=== PATIENT | female | born 2000 | race Two or more races ===

== ENCOUNTER 2019-05-26 23:03 | Emergency (ER) | payer OTHER ==
[2019-05-26] MEDS ORDERED: ONDANSETRON HCL INJ/PF 4 MG/2 ML SDV ONE (23:12)
[2019-05-26] MEDS ORDERED: NALOXONE HCL INJ/PF 0.4 MG/1 ML SDV IV ONE ×2 (23:14→23:15)
[2019-05-26] MEDS ORDERED: ONDANSETRON HCL INJ/PF 4 MG/2 ML SDV IV ONE (23:16)
[2019-05-26] MEDS ORDERED: NORMAL SALINE 1000 ML 1,000 ML IV ONE (23:16)
[2019-05-26 23:24] LABS: ABSOLUTE EOSINOPHILS # (AUTO) 0.2 10^3/uL (0.0-0.6); TOTAL CELLS COUNTED % (AUTO) 100 %
[2019-05-26 23:29] LABS: APPEARANCE,URINE CLEAR; BILIRUBIN,URINE NEGATIVE (NEGATIVE); COLOR,URINE COLORLESS; GLUCOSE, URINE NEGATIVE (NEGATIVE); KETONES,URINE NEGATIVE (NEGATIVE); LEUKOCYTE ESTERASE,URINE NEGATIVE (NEGATIVE); NITRITE,URINE NEGATIVE (NEGATIVE); PROTEIN,URINE NEGATIVE (NEGATIVE); URINE SPECIFIC GRAVITY 1.002; UROBILINOGEN,URINE NEGATIVE mg/dL (<2.0)
[2019-05-26 23:30] LABS: ABSOLUTE LYMPHOCYTES (AUTO) 3.9 10^3/uL (0.5-4.7); ABSOLUTE MONOCYTES (AUTO) 0.8 10^3/uL (0.1-1.4); ABSOLUTE NEUT (AUTO) 5.4 10^3/uL (1.7-8.2); BASOPHILS % (AUTO) 0.2 % (0-2); EOSINOPHILS % (AUTO) 1.8 % (0-6); HEMATOCRIT 37.5 % (36.0-47.0); LYMPHOCYTES % (AUTO) 37.6 % (13-45); MEAN CORPUSCULAR HEMOGLOBIN 21.9 pg (27.0-33.4); MEAN CORPUSCULAR VOLUME 68 fl (80-97); MONOCYTES % (AUTO) 7.9 % (3-13); PLATELET COUNT 310 10^3/uL (150-450); RED CELL DISTRIBUTION WIDTH 16.4 % (11.5-14.0); SEGMENTED NEUTROPHILS % (AUTO) 52.5 % (42-78); WHITE BLOOD COUNT 10.4 10^3/uL (4.0-10.5)
--- NOTE | 2019-05-26 23:30 | ER Document Report ---
ED General - General Stated Complaint: UNRESPOSIVE Time Seen by Provider: 05/26/19 23:13 - HPI Notes: 19-year-old female seen for altered mental status. History is obtained from the . Patient is brought here by her who reports that she was unresponsive at the apartment with a friend. They had apparently been drinking some shots of whiskey tonight. He says the patient is unaccustomed to drinking. He is not aware of any history of drug abuse. Patient is previously been in good general health. Uncertain of last menses. Patient has had some type of surgery of her tongue in the past and is otherwise been in good general health. She takes no regular medications. Allergies noted to penicillin and amoxicillin. - Related Data Allergies/Adverse Reactions: amoxicillin Allergy (Verified 05/27/19 00:12) Penicillins Allergy (Verified 05/27/19 00:12) Past Medical History - General Cannot obtain history due to: Altered mental status - Social History Smoking Status: Never Smoker Family History: Reviewed & Not Pertinent Review of Systems - Review of Systems -: Yes ROS unobtainable due to patient's medical condition Physical Exam - Vital signs Vitals: Pulse Resp BP Pulse Ox 117 H 10 L 135/85 H 100 05/26/19 23:03 05/26/19 23:03 05/26/19 23:03 05/26/19 23:03 - Notes Notes: GENERAL: Female patient approximately stated age with shallow respirations and minimal responsiveness to painful stimuli. SKIN: Cool and pale. HEAD: Normocephalic atraumatic. EYES: Pupils small and midposition sluggishly reactive and equal. Gaze is conjugate. Conjunctivae injected and sclerae clear. EARS: CANALS AND TMS CLEAR. NOSE: CLEAR. MOUTH: Moist mucosa. Good dentition. No stridor or edema. No drooling. Depressed gag reflex. NECK: Supple. No masses or thyromegaly. No adenopathy. Carotids 2+ without bruits. No JVD. BACK: Symmetrical without tenderness. CHEST: Shallow respirations. Breath sounds clear and symmetrical. HEART: Regular rhythm. No murmur gallop or rub. ABDOMEN: Soft nontender without masses, organomegaly or rebound. Bowel sounds normally active. No bruits. GENITALIA: Normal female. EXTREMITIES: No edema. No calf tenderness. Cap refill less than 1.5 seconds. Dorsalis pedis and posterior tibial pulses 1+ and symmetrical. NEUROLOGICAL: GCSeyes 2, verbal 2, motor 3 = 7 Course - Re-evaluation Re-evalutation: 05/26/19 23:30 IV line has been established. We bagged the patient briefly and gave Narcan 4 mg total. She showed improvement with this although she is still nonverbal. Blood sugar is 128. Roman catheter has been placed. We will get blood alcohol and urine drug screen, EKG, salicylate and acetaminophen levels, comprehensive metabolic profile and CBC. Anticipate also need for head CT and portable chest x-ray. 05/27/19 00:[address] negative. Chest x-ray negative. Salicylate and acetaminophen levels are nontoxic. Blood alcohol was 118. Urine drug screen is entirely negative. Urine hCG negative. CBC and comprehensive metabolic profile unremarkable. Chest x-ray showed sinus tachycardia with no alteration of intervals or axis. Arterial blood gas was obtained while patient was hyperventilating and values were consistent with this clinically. She subsequently has calmed and is now arousable and answering some questions. Clinically I think the entire presentation is consistent with significant alcohol intoxication and an alcohol anjali individual. Plan at this time is to continue IV hydration and to observe this patient until her blood alcohol was essentially 0 which will take about 5 hours. I have advised that barring unforeseen new developments I would anticipate discharge home at that time. 05/27/19 01:26 Patient is now awake and oriented. She remembers drinking whiskey at her friend's apartment and then she apparently blanked out and has no memory until waking up here just now. She complains of mild nausea and dry mouth and is otherwise relatively asymptomatic. We will discontinue Roman catheter and ambulate the patient as tolerated. If she is able to ambulate without assistance she will be discharged and is advised to abstain from further alcohol use and follow-up with primary care doctor. is going to be taking her home tonight. - Vital Signs Vital signs: Temp Pulse Resp BP Pulse Ox 117 H 14 114/71 100 05/26/19 23:03 05/27/19 00:45 05/27/19 00:45 05/27/19 00:45 - Laboratory Result Diagrams: 05/26/19 23:05 05/26/19 23:05 Laboratory results interpreted by me: 1205/26/19 05/26/19 23:05 23:05 23:22 RBC 5.50 H MCV 68 L MCH 21.9 L RDW 16.4 H Carbonic Acid 0.36 L ABG pH 7.64 H* ABG pCO2 12.0 L* ABG pO2 132.5 H ABG HCO3 12.5 L ABG Total CO2 12.9 L ABG O2 Saturation 99.2 H Chloride 112 H Carbon Dioxide 18 L Glucose 111 H Total Protein 8.6 H Salicylates < 1.0 L Acetaminophen < 10 L - EKG Interpretation by Me Additional EKG results interpreted by me: 05/26/19 23:32 Sinus tachycardia. Rate 137. Normal intervals. Normal axis. Critical Care Note - Critical Care Note Total time excluding time spent on procedures (mins): 35 Comments: Patient presented with altered mental status which turned out to be due to alcohol intoxication and alcohol anjali patient. She had to be bagged slightly when she came in and was given 2 doses of Narcan. She underwent a full evaluation for altered mental status. Discharge - Discharge Clinical Impression: Altered mental status due to alcohol int Condition: Stable Disposition: HOME, SELF-CARE Additional Instructions: Do not drink beer wine and whiskey. Do not operate machinery or drive a vehicle for the next 48 hours. Prescriptions: Ondansetron [Zofran Odt 4 mg Tablet] 1 - 2 tab PO Q4H PRN #15 tab.rapdis PRN Reason: For Nausea/Vomiting Referrals: [facility] [Provider Group] - Follow up as needed
[2019-05-26 23:35] LABS: ARTERIAL BLOOD BASE EXCESS -5.5 mmol/L; ARTERIAL BLOOD H2CO3 0.36 mmol/L (1.05-1.35); ARTERIAL BLOOD HCO3 12.5 mmol/L (20-24); ARTERIAL BLOOD O2 SATURATION 99.2 % (94-98); ARTERIAL BLOOD PO2 132.5 mmHg (80-100); ARTERIAL BLOOD TOTAL CO2 12.9 mmol/L (21-25)
[2019-05-26 23:38] LABS: ALBUMIN 4.8 g/dL (3.5-5.0); ALCOHOL 118 mg/dL (NONE DETECTED); ALKALINE PHOSPHATASE 110 U/L (38-126); ANION GAP 13 (5-19); ASPARTATE AMINO TRANSFERASE 33 U/L (14-36); BILIRUBIN,DIRECT 0.1 mg/dL (0.0-0.4); BILIRUBIN,TOTAL 0.2 mg/dL (0.2-1.3); BLOOD UREA NITROGEN 8 mg/dL (7-20); CALCIUM 9.7 mg/dL (8.4-10.2); CARBON DIOXIDE 18 mmol/L (22-30); CHLORIDE 112 mmol/L (98-107); GLUCOSE 111 mg/dL (75-110); POTASSIUM 3.8 mmol/L (3.6-5.0); TOTAL PROTEIN 8.6 g/dL (6.3-8.2)
[2019-05-26 23:38] LABS: ARTERIAL BLOOD FIO2 ROOM AIR
[2019-05-26 23:39] LABS: ARTERIAL BLOOD PH 7.64 (7.35-7.45)
[2019-05-26 23:39] LABS: ACETAMINOPHEN < 10 ug/mL (10-30); SALICYLATE < 1.0 mg/dL (2.0-20.0)
[2019-05-26 23:47] LABS: URINE AMPHETAMINES SCREEN NEGATIVE; URINE BARBITURATES SCREEN NEGATIVE; URINE BENZODIAZEPINES SCREEN NEGATIVE; URINE COCAINE SCREEN NEGATIVE; URINE MARIJUANA (THC) SCREEN NEGATIVE; URINE METHADONE SCREEN NEGATIVE; URINE PHENCYCLIDINE SCREEN NEGATIVE
--- NOTE | 2019-05-27 00:07 | RADIOLOGY REPORT (SQ) ---
EXAM DESCRIPTION: XR CHEST 1 VIEW COMPLETED DATE/TME: 05/26/2019 23:17 CLINICAL HISTORY: 19 years, Female, ams COMPARISON: None. NUMBER OF VIEWS: One TECHNIQUE: Single frontal view of the chest was obtained LIMITATIONS: None. FINDINGS: Cardiac and mediastinal contours are normal in appearance. Lungs are clear. No pleural effusion or pneumothorax. IMPRESSION: No acute disease. copyright 2010 [employer]- All Rights Reserved
--- NOTE | 2019-05-27 00:16 | RADIOLOGY REPORT (SQ) ---
EXAM: CT HEAD WITHOUT IV CONTRAST CLINICAL INDICATION: 19-year-old female with altered mental status. COMPARISON: None. TECHNIQUE: CT brain without contrast. This exam was performed according to our departmental dose optimization program which includes use of automated exposure control, adjustment of the mA and/or kV according to patient size and/or use of iterative reconstruction technique. FINDINGS: Streak artifact limited examination. The ventricles, sulci, and cisterns are within normal limits. The sam-white matter differentiation is preserved. There is no mass effect, midline shift, intra- or extra-axial fluid collection/acute hemorrhage. The osseous structures are unremarkable. The paranasal sinuses and mastoid air cells are clear. IMPRESSION: No acute intracranial abnormalities.
[2019-05-27] MEDS ORDERED: NORMAL SALINE 1000 ML 1,000 ML IV ONE (00:20)
[2019-05-27 02:34] VITALS: BP 104/66
--- NOTE | 2019-05-27 12:06 | EKG REPORT ---
SEVERITY:- ABNORMAL ECG - SINUS TACHYCARDIA ATRIAL PREMATURE COMPLEX ST DEPRESSION, CONSIDER ISCHEMIA, INF LEADS : Confirmed by: Jessica Chicas MD 27-May-2019 12:05:19
== END 2019-05-27 02:46 | disposition home or self-care (01) ==
LOC: ER 23:03
DX: R41.82 Altered mental status, unspecified (principal); F10.129 Alcohol abuse with intoxication, unspecified
CPT/HCPCS: 93005; 99291; 96361; 51702; 96374; 96375; 36415; 82962; 80307 ×4; 82803; 84703; 85025; 80053; 81001; 71045; 70450; 93010; J2310; J2405; J7030

== ENCOUNTER 2020-01-24 10:28 | Emergency (ER) | payer OTHER ==
[2020-01-24 10:34] VITALS: BP 123/76
[2020-01-24] MEDS ORDERED: DIPH/PERTUSS(ACELL)/TETANUS VAC/PF 0.5 ML SYR (>=10YO) IM ONE (10:43)
--- NOTE | 2020-01-24 10:48 | ER Document Report ---
ED General - General Chief Complaint: Foot Pain Stated Complaint: FOOT PAIN Notes: Patient is a 19-year-old female with no significant past medical history presents the emergency department the chief complaint of scratch between the second and third toes of the left foot that occurred prior to arrival. She reports she was playing with her friend's dog who just come in from outside and he accidentally scratched her between these 2 digits. She states there was a wound and some bleeding. She was concerned for infection prevention so she came for evaluation. She is unsure of her last tetanus immunization. Denies any numbness tingling or weakness. - Related Data Allergies/Adverse Reactions: amoxicillin Allergy (Verified 01/24/20 10:40) Penicillins Allergy (Verified 01/24/20 10:40) Past Medical History - Social History Smoking Status: Unknown if Ever Smoked Family History: Reviewed & Not Pertinent Review of Systems - Review of Systems Constitutional: denies: Fever EENT: denies: Difficulty swallowing Cardiovascular: denies: Chest pain Respiratory: denies: Short of breath Gastrointestinal: denies: Abdominal pain Genitourinary: denies: Pain Female Genitourinary: No symptoms reported Skin: Other - Abrasion Hematologic/Lymphatic: No symptoms reported Neurological/Psychological: denies: Weakness Physical Exam - Vital signs Vitals: Temp Pulse Resp BP Pulse Ox 98.7 F 95 16 123/76 99 01/24/20 10:33 01/24/20 10:33 01/24/20 10:33 01/24/20 10:33 01/24/20 10:33 - General General appearance: Appears well, Alert In distress: None - Respiratory Respiratory status: No respiratory distress Chest status: Nontender Breath sounds: Normal Chest palpation: Normal - Cardiovascular Rhythm: Regular Heart sounds: Normal auscultation - Extremities Foot: Other - Full passive range of motion of all the digits of the left foot including the foot. 2+ DP/PT on the left. Good capillary refill distally in all the toes. Normal gait - Neurological Neuro grossly intact: Yes Cognition: Normal Orientation: AAOx4 - Psychological Associated symptoms: Normal affect, Normal mood - Skin Skin Color: Other - Superficial abrasion to the dorsal surface of the left second digit, pinpoint. Second abrasion noted to the medial surface of the left third digit. Hemostasis maintained. No foreign body visualized. No notable organic matter. Course - Re-evaluation Re-evalutation: 01/24/20 10:48 Patient with some abrasions after being scratched by a canine. Tetanus updated today. We discussed wound care, dressings and antibiotic ointment. Counseled her regarding the importance of outpatient follow-up in 2 to 3 days for wound recheck and reevaluation. Advised that she return here or any ER immediately with any new, persistent or worsening symptoms. She verbalized understood and agreed. - Vital Signs Vital signs: Temp Pulse Resp BP Pulse Ox 98.7 F 95 16 123/76 99 01/24/20 10:33 01/24/20 10:33 01/24/20 10:33 01/24/20 10:33 01/24/20 10:33 Discharge - Discharge Clinical Impression: Toe abrasion Qualifiers: Encounter type: initial encounter Laterality: left Qualified Code(s): S90.415A - Abrasion, left lesser toe(s), initial encounter Condition: Stable Disposition: HOME, SELF-CARE Instructions: Dressing Instructions for Open Wounds ([facility]) Additional Instructions: Follow-up with your regular doctor in 2 to 3 days for reevaluation. Return here or any ER immediately with any new, persistent or worsening symptoms. Prescriptions: Bacitracin 1 each TP BID #30 packet Referrals: [facility] [NO LOCAL MD] - Follow up as needed
== END 2020-01-24 11:10 | disposition home or self-care (01) ==
LOC: ER 10:28
DX: S90.415A Abrasion, left lesser toe(s), initial encounter (principal); S90.812A Abrasion, left foot, initial encounter; M79.672 Pain in left foot; X58.XXXA Exposure to other specified factors, initial encounter; Z88.0 Allergy status to penicillin
CPT/HCPCS: 90471; 90715; 99282